=== PATIENT | female | born 1980 | race Caucasian/White ===

== ENCOUNTER 2020-06-20 08:00 | Emergency (ER) | payer BC, MEDICAID ==
[2020-06-20 08:07] VITALS: BP 150/97
[2020-06-20] MEDS ORDERED: TETRACAINE HCL 0.5% OPH SOLN 4 ML OD ONE (08:44)
[2020-06-20] MEDS ORDERED: TETRACAINE HCL 0.5% OPH SOLN 4 ML ONE (08:45)
[2020-06-20] MEDS ORDERED: DIPH/PERTUSS(ACELL)/TETANUS VAC/PF 0.5 ML SYR (>=10YO) IM ONE (08:53)
[2020-06-20] MEDS ORDERED: CYCLOPENTOLATE HCL 1% OPH SOLN 2 ML OD ONE (08:53)
[2020-06-20] MEDS ORDERED: TOBRAMYCIN SULFATE/DEXAMETH OPH SUSP 2.5 ML OD ONE (08:54)
--- NOTE | 2020-06-20 09:01 | ER Document Report ---
ED General - General Chief Complaint: Foreign Body in Eye Stated Complaint: PIECE OF GLASS IN RIGHT EYE Time Seen by Provider: 06/20/20 08:52 - HPI Notes: Chief complaint: Foreign body right eye History of present illness: Generally healthy 40-year-old female with last tetanus booster unknown presents for persistent foreign body sensation right eye. Patient states that she was taking a glass coffee carafe out of her kitchen cabinet last night when she dropped this and the glass shattered with a small fragment striking her in the eye. She has had a persistent foreign body sensation since then despite rinsing the eye out. She took some Tylenol this morning and says the eye is still uncomfortable. She denies use of glasses or contacts. She is moderately photophobic but otherwise denies any disturbance of visual acuity. - Related Data Allergies/Adverse Reactions: No Known Allergies Allergy (Unverified 06/20/20 08:48) Past Medical History - General Information source: Patient, Relative - Social History Smoking Status: Never Smoker Frequency of alcohol use: None Drug Abuse: None Lives with: Spouse/Significant other Family History: Reviewed & Not Pertinent - Medical History Medical History: Negative Surgical Hx: Negative Review of Systems - Review of Systems Notes: Constitutional: Negative for fever. HENT: Negative for sore throat. Eyes: As per HPI. Cardiovascular: Negative for chest pain. Respiratory: Negative for shortness of breath. Gastrointestinal: Negative for abdominal pain, vomiting or diarrhea. Genitourinary: Negative for dysuria. Musculoskeletal: Negative for back pain. Skin: Negative for rash. Neurological: Negative for headaches, weakness or numbness. 10 point ROS negative except as marked above and in HPI. Physical Exam - Vital signs Vitals: Temp Pulse Resp BP Pulse Ox 98.0 F 70 16 150/97 H 99 06/20/20 08:06 06/20/20 08:06 06/20/20 08:06 06/20/20 08:06 06/20/20 08:06 - Notes Notes: GENERAL: Middle-age female appearing photophobic and moderately uncomfortable. SKIN: Good turgor no rashes. HEAD: Normocephalic atraumatic. EYES: Patient is photophobic. She has mild conjunctival injection of the right eye. There is no obvious foreign body on direct inspection of the eye with eversion of the lids. PERRLA. EOMI. Conjunctivae and sclerae clear. NECK: Supple. No masses or thyromegaly. No adenopathy. Carotids 2+ without bruits. No JVD. BACK: Symmetrical without tenderness. CHEST: Respirations unlabored. Breath sounds clear and symmetrical. HEART: Regular rhythm. No murmur gallop or rub. ABDOMEN: Soft nontender without masses, organomegaly or rebound. Bowel sounds normally active. No bruits. EXTREMITIES: No edema. No calf tenderness. Cap refill less than 1.5 seconds. Dorsalis pedis and posterior tibial pulses 3+ and symmetrical. NEUROLOGICAL: Alert and oriented x3. Nonfocal. PSYCHIATRIC: Appropriate affect. Course - Vital Signs Vital signs: Temp Pulse Resp BP Pulse Ox 98.0 F 70 16 150/97 H 99 06/20/20 08:06 06/20/20 08:06 06/20/20 08:06 06/20/20 08:06 06/20/20 08:06 - Laboratory Results Critical Laboratory Results Reviewed: No Critical Results - Radiology Results Critical Radiology Results Reviewed: No Critical Results Procedures - Eye Procedure Right Time completed: 08:55 Eye Irrigated w/ Saline (ccs): 50 Alcaine Drops Administered: Yes Fluorescein applied: Right Antibiotic Oinment/Drps Admin: Right eye Cyclogel 2 Drops Administered: Right eye Slit lamp used: Yes Notes: 06/20/20 09:01 Small corneal abrasion at the 8 o'clock position near the limbus. No visualized residual foreign body. No streaming of fluorescein. Discharge - Discharge Clinical Impression: Corneal abrasion Condition: Stable Disposition: HOME, SELF-CARE Additional Instructions: Corneal Abrasion You have a corneal abrasion, a scratch on the surface of the eye. The pain of a corneal abrasion feels like a sharp particle in the eye. Usually, antibiotics are placed in the eye to prevent infection. Occasionally, medication will be placed in the eye to dilate the pupil. This is done to relieve some of your discomfort and is only temporary. Pain medication may be required. Don't drive or operate machinery until you have the use of both your eyes. The abrasion usually is healed in one or two days. A follow-up examination to confirm healing is recommended. Call the doctor or return at once if you develop severe pain, decreasing vision, eye swelling, or purulent drainage. Use 2 drops of each of the 3 medicines you are given 3 times a day. You may take your home pain medication supplementally as needed as we have discussed. Avoid bright sunlight for the next 2 days and if you must go outside to be certain you wear dark glasses. Follow-up with an dental floss packer for reexam of the eye within 48 hours. Forms: Elevated Blood Pressure Referrals: OPHTHAMOLOGY [Provider Group] - Follow up as needed
== END 2020-06-20 09:37 | disposition home or self-care (01) ==
LOC: ER 08:00
DX: S05.01XA Injury of conjunctiva and corneal abrasion without foreign body, right eye, initial encounter (principal); W22.03XA Walked into furniture, initial encounter
CPT/HCPCS: 99283; 90715; J3490 ×3